=== PATIENT | female | born 1985 | race American Indian/Alaskan Native ===

== ENCOUNTER 2017-11-21 10:51 | Day surgery (SDC) | payer OTHER ==
[2017-11-21 12:16] LABS: BASO # 0.1 K/uL (0.0-0.2); BASO % 0.8 % (0.0-2.0); EOS # 0.3 K/uL (0.0-0.7); EOS % 3.8 % (0.0-4.0); HEMOGLOBIN 10.8 g/dL (12.0-16.0); LYMPH # 1.5 K/uL (1.0-4.3); LYMPH % 20.8 % (20.0-40.0); MEAN CELL VOLUME 80.7 fl (81.0-99.0); MEAN CORPUSCULAR HEMOGLOBIN 26.7 pg (27.0-31.0); MEAN PLATELET VOLUME 8.2 fl (7.2-11.7); MONO # 0.6 K/uL (0.0-0.8); MONO % 8.4 % (0.0-10.0); NEUT # 4.6 K/uL (1.8-7.0); NEUT % 66.2 % (50.0-75.0); RBC 4.04 Mil/uL (3.80-5.20); RED CELL DISTRIBUTION WIDTH 19.4 % (11.5-14.5)
[2017-11-21] MEDS ORDERED: Midazolam 2 MG/2 ML VIAL ONE (12:35)
[2017-11-21] MEDS ORDERED: Lidocaine 1% 5ml Abboject IV ONE (12:35)
[2017-11-21] MEDS ORDERED: Propofol 10 mg/ml Inj (20 ML) ONE (12:35)
[2017-11-21] MEDS ORDERED: Lidocaine 2% Jelly (5 ml) TOP ONE (12:37)
[2017-11-21] MEDS ORDERED: Lactated Ringer's 1,000 ML IV ONE ×3 (12:50→16:22)
[2017-11-21] MEDS ORDERED: Silver Nitrate Topical - Stick ONE (14:03)
[2017-11-21] MEDS ORDERED: HYDROmorphone 0.5 mg/0.5 ml ISec IVP PRN (14:27)
[2017-11-21 16:41] VITALS: RESP 18
[2017-11-21 17:43] VITALS: BP 118/78; PULSE 72; TEMP 97.6; O2SAT 100
--- NOTE | 2017-11-23 13:18 | OP ---
PROCEDURE DATE: 11/21/2017 PREOPERATIVE DIAGNOSIS: Endometrial polyp. POSTOPERATIVE DIAGNOSIS: Endometrial polyp, pending Pathology. PROCEDURE: Hysteroscopy with MyoSure and dilatation and curettage. SURGEON: Deacon Harrison MD ANESTHESIA ADMINISTERED BY: Shaji Aldridge MD DESCRIPTION OF PROCEDURE: With the patient under general anesthesia in lithotomy position, the patient was prepped and draped in the usual sterile manner. Straight catheter was inserted in to the bladder after which a weighted speculum was placed in the posterior vagina. Cervix was grasped with a single-tooth tenaculum dilated, after which hysteroscopy was done visualizing the uterine polyp. Following that, MyoSure was to remove the polyp and D and C was done at the end of the procedure. Bleeding was minimal. The patient was in satisfactory condition on her way to recovery room. Deacon Harrison MD
== END 2017-11-21 18:20 | disposition home or self-care (01) ==
LOC: H.OPSURG 10:51
PROVIDERS: ATTEND Specialist
DX: N84.0 Polyp of corpus uteri (principal); D64.9 Anemia, unspecified; J45.909 Unspecified asthma, uncomplicated
CPT/HCPCS: 36415; 58558; 85025; 88305; J1170; J2250; J2704; J2765; J3010; J7030; J7120

== ENCOUNTER 2018-06-26 10:29 | Emergency (ER) | payer OTHER ==
[2018-06-26 10:37] VITALS: BMI 28.2
[2018-06-26 10:38] VITALS: O2SAT 100
--- NOTE | 2018-06-26 11:30 | ED PDOC ---
HPI: Female Pain Time Seen by Provider: 06/26/18 10:40 Chief Complaint (Nursing): Female Genitourinary Chief Complaint (Provider): Female Genitourinary History Per: Patient History/Exam Limitations: no limitations Onset/Duration Of Symptoms: Days (x1 week) Current Symptoms Are (Timing): Still Present Additional Complaint(s): 33 year old female presents to the ED for evaluation of intermittent mild pelvic cramping for the past week associated with vaginal spotting. Patient reports she is approximately 5-6 weeks and is scheduled for her first OB visit on 06/[address] Harrison, but came in today after yesterday the cramping became constant and started to radiate to the right side of the pelvis. Otherwise denies abdominal pain, nausea, vomiting, dysuria, hematuria, and hx of ectopic pregnancies. [employer]ched [employer] Processor: Deacon Harrison Past Medical History Reviewed: Historical Data, Nursing Documentation, Vital Signs Vital Signs: Last Vital Signs Temp 97.8 F 06/26/18 10:37 Pulse 75 06/26/18 10:37 Resp 17 06/26/18 10:37 BP 137/92 H 06/26/18 10:37 Pulse Ox 100 06/26/18 10:37 - Medical History PMH: Anemia (but no hx of transfusions), Asthma Denies: Chronic Kidney Disease - Surgical History Surgical History: (x2) - Family History Family History: States: Unknown Family Hx - Social History Current smoker - smoking cessation education provided: No Alcohol: None Drugs: Denies - Home Medications Home Medications: Ambulatory Orders Medication Instructions Recorded Ibuprofen [Motrin Tab] 800 mg PO Q8 PRN 11/21/17 Multivitamin/Iron/Folic Acid 1 each PO DAILY 11/21/17 [Daily Multivitamin-Iron Tablet] RX: Albuterol HFA [Ventolin HFA 90 2 dose INH ASDIR 11/21/17 mcg/actuation (8 g)] - Allergies Allergies/Adverse Reactions: Allergies Allergy/AdvReac Type Severity Reaction Status Date / Time cat dander Allergy CONGESTION Verified 11/21/17 13:55 Review of Systems ROS Statement: Except As Marked, All Systems Reviewed And Found Negative Gastrointestinal: Negative for: Nausea, Vomiting, Abdominal Pain Genitourinary Female: Positive for: Vaginal Bleeding, Pelvic Pain (mild cramping radiating to right side of pelvis). Negative for: Dysuria, Hematuria Physical Exam - Reviewed Nursing Documentation Reviewed: Yes Vital Signs Reviewed: Yes - Physical Exam Appears: Positive for: No Acute Distress Gastrointestinal/Abdominal: Positive for: Normal Exam, Soft. Negative for: Tenderness (including pelvis) Back: Positive for: Normal Inspection. Negative for: L CVA Tenderness, R CVA Tenderness - Laboratory Results Result Diagrams: 06/26/18 11:21 06/26/18 11:21 - ECG O2 Sat by Pulse Oximetry: 100 (RA) Pulse Ox Interpretation: Normal - Progress ED Course And Treament: Case d/w Dr. Hu and Dr. Harrison who agrees with plan and care. As per Dr. Harrison pt. can f/u on Friday as previously scheduled. Pt. and informed of results. Advised to f/u with Dr. Harrison on Friday but is to return to ED immediately if symptoms worsen. Pt. verbalized correct understanding of f/u and care. Medical Decision Making Medical Decision Making: Time: 1110 Initial Impression: pelvic cramping with vaginal spotting in setting of known Initial Plan: --Type and screen --Beta HCG --CMP --CBC with differential --Urinalysis --US OB Scribe Attestation: Documented by Mae Vargas, acting as a scribe for Zach Aquino PA-C. Provider Scribe Attestation: All medical record entries made by the Scribe were at my direction and personally dictated by me. I have reviewed the chart and agree that the record accurately reflects my personal performance of the history, physical exam, medical decision making, and the department course for this patient. I have also personally directed, reviewed, and agree with the discharge instructions and disposition. Disposition - Clinical Impression Clinical Impression: Miscarriage - Patient ED Disposition Is Patient to be Admitted: No - Disposition Referrals: Deacon Harrison MD [Staff Provider] - Disposition: Routine/Home Disposition Time: 15:22 Condition: STABLE Additional Instructions: DAIJA VELIZ, thank you for letting us take care of you today. Your provider was Carlie Hu MD and you were treated for 6 WEEKS,FEMALE GENITOURINARY. The emergency medical care you received today was directed at your acute symptoms. If you were prescribed any medication, please fill it and take as directed. It may take several days for your symptoms to resolve. Return to the Emergency Department if your symptoms worsen, do not improve, or if you have any other problems. Please contact your doctor or call one of the physicians/clinics you have been referred to that are listed on the Patient Visit Information form that is included in your discharge packet. Bring any paperwork you were given at dischar ge with you along with any medications you are taking to your follow up visit. Our treatment cannot replace ongoing medical care by a primary care provider outside of the emergency department. Thank you for allowing the [facility] team to be part of your care today. If you had an X-Ray or CT scan: A Radiologist will review the ED reading if any change in treatment is needed we will contact you. If you had a blood, urine, or wound culture: It will take several days for the results, if any change in treatment is needed we will contact you. If you had an STI test: It will take 48 hours for the results. Please call after 1 week if you have not heard back. Instructions: Dealing With Miscarriage, Miscarriage (DC) Forms: [employer] (Angolan)
[2018-06-26 12:16] LABS: BASO # 0.1 K/uL (0.0-0.2); BASO % 0.8 % (0.0-2.0); EOS # 0.2 K/uL (0.0-0.7); EOS % 3.2 % (0.0-4.0); HEMOGLOBIN 10.9 g/dL (12.0-16.0); LYMPH # 1.5 K/uL (1.0-4.3); LYMPH % 23.9 % (20.0-40.0); MEAN CELL VOLUME 80.9 fl (81.0-99.0); MEAN CORPUSCULAR HEMOGLOBIN 26.4 pg (27.0-31.0); MEAN CORPUSCULAR HGB CONC 32.7 g/dL (33.0-37.0); MEAN PLATELET VOLUME 8.7 fl (7.2-11.7); MONO # 0.4 K/uL (0.0-0.8); MONO % 6.8 % (0.0-10.0); NEUT # 4.2 K/uL (1.8-7.0); NEUT % 65.3 % (50.0-75.0); RBC 4.13 Mil/uL (3.80-5.20); RED CELL DISTRIBUTION WIDTH 18.3 % (11.5-14.5); WHITE BLOOD COUNT 6.4 K/uL (4.8-10.8)
[2018-06-26 12:18] LABS: SQUAMOUS EPITHIAL < 1 /hpf (0-5); URINE BILIRUBIN NEGATIVE (NEGATIVE); URINE BLOOD LARGE (NEGATIVE); URINE CLARITY CLEAR (Clear); URINE COLOR COLORLESS (YELLOW); URINE GLUCOSE (UA) NEG (NEGATIVE); URINE LEUKOCYTE ESTERASE NEG Leu/uL (Negative); URINE PROTEIN NEGATIVE (NEGATIVE); URINE UROBILINOGEN 0.2-1.0 mg/dL (0.2-1.0)
[2018-06-26 12:22] LABS: ALB/GLOB RATIO 1.1 (1.0-2.1); ALBUMIN 4.7 g/dL (3.5-5.0); ALT/SGPT 25 U/L (9-52); AST/SGOT 31 U/L (14-36); BLOOD UREA NITROGEN 9 mg/dl (7-17); CALCIUM 10.2 mg/dL (8.4-10.2); GFR NON-AFRICAN AMERICAN > 60
--- NOTE | 2018-06-26 13:54 | US ---
Date of service: 06/26/2018 PROCEDURE: Pelvic ultrasound HISTORY: vaginal bleeding LMP: 05/18/2018. Beta HCG results: Unavailable. COMPARISON: None available. TECHNIQUE: Standard protocol for this study/examination. FINDINGS: UTERUS: Measures 4.8 x 4.4 x 10.7 cm. Normal in size and appearance. No fibroid or other mass lesion seen. ENDOMETRIUM: Measures 10.8 mm in diameter. No ultrasound findings to suggest gestational sac, fluid, debris, mass or polyp or other pathologic process within the endometrium. CERVIX: No cervical abnormality identified. RIGHT OVARY: Measures 2.5 x 2 x 2.6 cm. No solid mass. Normal flow. LEFT OVARY: Measures 1.8 x 2.2 x 1.5 cm. No solid mass. Normal flow. FREE FLUID: No significant free fluid noted. OTHER FINDINGS: None. IMPRESSION: Unremarkable pelvic ultrasound. No evidence of intrauterine or visible ectopic products of conception.
[2018-06-26 15:37] VITALS: BP 125/87; PULSE 82; RESP 18; TEMP 98.3
== END 2018-06-26 15:40 | disposition home or self-care (01) ==
LOC: H.ER 10:29
DX: O03.9 Complete or unspecified spontaneous abortion without complication (principal); O99.511 Diseases of the respiratory system complicating pregnancy, first trimester; J45.909 Unspecified asthma, uncomplicated; Z3A.01 Less than 8 weeks gestation of pregnancy; Z36.9 Encounter for antenatal screening, unspecified